=== PATIENT | female | born 1960 | race Caucasian/White ===

== ENCOUNTER → 2019-01-22 | Outpatient (CLI) | payer OTHER ==
[~2019-01-22] MED LIST: ALBU90OI6 INH
[2019-01-23 14:06] LABS: HPV 16 Negative (Negative); HPV 18 Negative (Negative); HPV OTHER HR TYPES Negative (Negative)
== END | disposition home or self-care (01) ==
LOC: LAB 13:23 → LAB SHORT 13:23
PROVIDERS: Internal Medicine
DX: Z12.4 Encounter for screening for malignant neoplasm of cervix (principal)
CPT/HCPCS: 87624; G0145

== ENCOUNTER → 2019-05-28 | Outpatient (CLI) | payer OTHER | END | disposition home or self-care (01) | LOC: LAB 07:22 → LAB SHORT 07:22 | DX: N84.0 Polyp of corpus uteri (principal); N95.0 Postmenopausal bleeding | CPT/HCPCS: 88305 ==

== ENCOUNTER 2020-12-30 08:12 | Day surgery (SDC) | payer OTHER | END 2020-12-30 23:09 | disposition home or self-care (01) | LOC: MOI US 08:12 → MOI MAM 01-09 08:00 | DX: C50.912 Malignant neoplasm of unspecified site of left female breast (principal); Z17.0 Estrogen receptor positive status [ER+] | CPT/HCPCS: 19083; 77065; 88305; 88360; A4648; G0279 ==

== ENCOUNTER 2021-10-17 08:36 | Day surgery (SDC) | payer MEDICARE, OTHER ==
[~2021-10-17] VITALS: Ht 167.6 cm; Wt 91.6 kg
[~2021-10-17 08:36] MED LIST changes: +ANASTROZOLE1 M7 PO; +BUPROPION XL150 M1 PO; +ESCI20 PO; +PREG100 PO
--- NOTE | 2021-10-17 09:30 | NUR ---
History, Chart, Medications and Allergies reviewed before start of procedure. Lungs clear T/O to Auscultation. Patient confirms NPO status and agrees with scheduled surgery. Pre-Op teaching done. Pt verbalizes understanding. Patient reports completing Chlorhexadine shower X2 prior to admission to hospital.
--- NOTE | 2021-10-17 14:16 | NUR ---
PT TO ROOM FROM PACU AT 1400. VSS ON RA, RESTING IN BED. PT HAS NO SENSATION TO LOWER EXTREMITIES AT THIS TIME, UNABLE TO WIGGLE TOES. LUNGS CLEAR. TOLERATING WATER AND JELLO. ORIENTED TO ROOM & CALL LIGHT.
--- NOTE | 2021-10-17 18:44 | NUR ---
NO ACUTE CHANGES SINCE ARRIVAL. PT GAINED SENSATION TO LOWER EXTREMITIES. WORKED W/ PT & DID WELL, 1 P FWW/GB. VOIDED POST OP, TOLERATING PO INTAKE WELL. PAIN MANAGED PER EMAR. WILL REPORT TO ONCOMING RN.
--- NOTE | 2021-10-18 04:08 | NUR ---
SHIFT SUMMARY POD1 L TKA. BENJA WRAP TO KNEE REMAINS CDI WITH POLAR PACK IN PLACE. UP WITH 1 SBA USING GB + WALKER. 2 STONE + TYLENOL + TORADOL FOR PAIN MANAGEMENT. X1 DOSE OF DILAUDID FOR BREAKTHROUGH PAIN. IV SL. ANURADHA PO. USES CALL LIGHT APPROPRIATELY.
[2021-10-18 05:10] LABS: BASOPHILS ABSOLUTE AUTO 0.02 K/mm3 (0.00-0.23); BASOPHILS PERCENT AUTO 0 % (0-2); EOSINOPHILS ABSOLUTE AUTO 0.19 K/mm3 (0.00-0.68); EOSINOPHILS PERCENT AUTO 1 % (0-6); Hematocrit 36.1 % (33.0-51.0); Hemoglobin 11.5 g/dL (11.5-16.0); IMMATURE GRAN ABSOLUTE AUTO 0.11 K/mm3 (0.00-0.10); IMMATURE GRAN PERCENT AUTO 1 % (0-1); LYMPHOCYTES ABSOLUTE AUTO 2.55 K/mm3 (0.84-5.20); LYMPHOCYTES PERCENT AUTO 18 % (21-46); MONOCYTES ABSOLUTE AUTO 1.37 K/mm3 (0.16-1.47); MONOCYTES PERCENT AUTO 10 % (4-13); Mean Corpuscular HGB 28.5 pg (26.0-34.0); Mean Corpuscular HGB Conc 31.9 g/dL (31.5-36.5); Mean Corpuscular Volume 89 fL (80-100); Mean Platelet Volume 9.7 fL (9.1-12.4); NEUTROPHILS ABSOLUTE AUTO 9.98 K/mm3 (1.96-9.15); NEUTROPHILS PERCENT AUTO 70 % (41-73); Platelet Count 245 K/mm3 (150-400); RDW Coefficient Variation 14.8 % (11.7-14.2); RDW Standard Deviation 47.9 fL (35.1-46.3); Red Blood Cell Count 4.04 M/mm3 (3.80-5.20); White Blood Cell Count 14.22 K/mm3 (4.00-11.30)
[2021-10-18 05:45] LABS: Anion Gap 7 mmol/L (6-16); Blood Urea Nitrogen 10 mg/dL (8-24); Bun/Creatinine Ratio 15.1 (12.0-20.0); CO2, Blood 29 mmol/L (21-32); Calcium, Blood 8.4 mg/dL (8.5-10.1); Chloride, Blood 102 mmol/L (98-108); Creatinine, Blood 0.66 mg/dL (0.40-1.00); Glomerular Filtration Rate >60 (60-); Glucose, Blood 171 mg/dL (70-99); Potassium, Blood 3.7 mmol/L (3.5-5.5); Sodium, Blood 138 mmol/L (136-145)
[2021-10-18] MEDS ORDERED: Percocet 5-3251 EACH PO (08:26)
[2021-10-18] MEDS ORDERED: Aspir 8181 MG PO (08:26)
--- NOTE | 2021-10-18 12:53 | NUR ---
DISCHARGE SUMMARY PT A&OX4, VSS/RA, PAIN MANAGED WELL, ANURADHA PO, VOIDING WELL, AMB SBA FWW & GB. 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 DC INS PROVIDED, PT REP UNDERSTANDING THOSE INSTRUCTIONS. IV DC'D.
== END 2021-10-18 11:35 | disposition home or self-care (01) ==
LOC: ORSCMMR 08:36 → ORD 10:15 → SURS 13:50 → ORSCMMR 10-18 11:35
PROVIDERS: Orthopaedic Surgery
PROC: 0SPD04Z Removal of Internal Fixation Device from Left Knee Joint, Open Approach (ICD-10-PCS; principal; 2021-10-17 10:15)
PROC: 8E0Y0CZ Robotic Assisted Procedure of Lower Extremity, Open Approach (ICD-10-PCS; principal; 2021-10-17 10:15)
PROC: 0SRD0JA Replacement of Left Knee Joint with Synthetic Substitute, Uncemented, Open Approach (ICD-10-PCS; principal; 2021-10-17 10:15)
DX: M17.12 Unilateral primary osteoarthritis, left knee (principal); F41.8 Other specified anxiety disorders; M79.7 Fibromyalgia; Z79.899 Other long term (current) drug therapy; E66.9 Obesity, unspecified; Z68.32 Body mass index [BMI] 32.0-32.9, adult
CPT/HCPCS: 27447; 20680; S2900; 36415; 73560-LT; 80048; 85025; 97110; 97116; 97161; 97530; A9270; C1713; C1776; J0171; J0690; J0735; J1170; J1885; J2250; J2405; J2704; J2795; J3010; J7120

== ENCOUNTER 2021-11-28 06:26 | Day surgery (SDC) | payer MEDICARE, OTHER ==
[~2021-11-28] VITALS: Ht 167.6 cm; Wt 89.8 kg
[~2021-11-28 06:26] MED LIST changes: +Aspir 8181 MG PO; +Percocet 5-3251 EACH PO
--- NOTE | 2021-11-28 09:05 | NUR ---
PT OUT TO CAR VIA WHEELCHAIR, ABLE TO DRESS INDEPENDENTLY. D/C INST GIVEN, PT DENIES QUESTIONS. SISTER IS RIDE HOME.
== END 2021-11-28 23:19 | disposition home or self-care (01) ==
LOC: ORSCMMR 06:26 → ORD 07:30 → ORSCMMR 23:19
PROVIDERS: Orthopaedic Surgery
PROC: 0SNDXZZ Release Left Knee Joint, External Approach (ICD-10-PCS; principal; 2021-11-28 07:30)
DX: Z96.652 Presence of left artificial knee joint (principal); M24.662 Ankylosis, left knee; M79.7 Fibromyalgia; E66.9 Obesity, unspecified; Z68.32 Body mass index [BMI] 32.0-32.9, adult; Z79.899 Other long term (current) drug therapy
CPT/HCPCS: 73560-LT; A9270; J0690; J1100; J1885; J2405; J2704; J3010; J7120

== ENCOUNTER → 2022-11-27 | Outpatient (CLI) | payer MEDICARE, OTHER ==
[2022-11-30 16:11] LABS: HPV 16 Negative (Negative); HPV 18 Negative (Negative); HPV OTHER HR TYPES Negative (Negative)
== END | disposition home or self-care (01) ==
LOC: LAB SHORT 08:40 → LAB 08:40
PROVIDERS: Internal Medicine
DX: Z12.4 Encounter for screening for malignant neoplasm of cervix (principal)
CPT/HCPCS: 87624; G0145

== ENCOUNTER 2024-08-11 09:41 | Day surgery (SDC) | payer OTHER ==
[~2024-08-11] VITALS: Ht 167.6 cm; Wt 82.2 kg
[2024-08-11] VITALS (14 sets, daily range): BP systolic 128–163; BP diastolic 64–81
[2024-08-11] MEDS ORDERED: OxyCODONE HCL 10 MG TABCR PO SCH (10:15)
[2024-08-11] MEDS ORDERED: Lactated Ringer's 1,000 ML IV SCH ×2 (10:15→10:55)
[2024-08-11] MEDS ORDERED: Tranexamic Acid 1,000 MG in NS 100 ML IV SCH (10:15)
[2024-08-11] MEDS ORDERED: Ropivacaine 0.5% HCl/Pf 123.125 MG,EPINEPHrine HCL 0.25 MG,Ketorolac Tromethamine 15 MG... INFIL SCH (10:15)
[2024-08-11] MEDS ORDERED: Acetaminophen 500 MG Tab PO SCH ×2 (10:15→16:00)
[2024-08-11] MEDS ORDERED: Chlorhexidine Mouth Care 15 ML UDC MT SCH (10:15)
[2024-08-11] MEDS ORDERED: CeFAZolin Sodium 2,000 MG in NS 100 ML IV SCH ×2 (10:15→21:00)
[2024-08-11] MEDS ORDERED: CeFAZolin Sodium 2,000 MG VIAL ONE (10:42)
[2024-08-11] MEDS ORDERED: Ondansetron HCl 2 MG / ML 2ML Vial IV PRN (10:55)
[2024-08-11] MEDS ORDERED: Metoclopramide HCl 5MG / ML 2ML Vial IV PRN (10:55)
[2024-08-11] MEDS ORDERED: Magnesium Hydroxide Conc 10 ML UDC PO PRN (10:55)
--- NOTE | 2024-08-11 10:58 | NUR ---
History, Chart, Medications and Allergies reviewed before start of procedure. Pre-Op teaching done. Pt verbalizes understanding. Patient confirms NPO status and agrees with scheduled surgery. PT BELONGINGS BAG PLACED UNDER GURNEY.
[2024-08-11] MEDS ORDERED: Midazolam HCl 1MG / ML 2ML Vial ONE (10:59)
[2024-08-11] MEDS ORDERED: propofoL 60 ML IV ONE (10:59)
[2024-08-11] MEDS ORDERED: FentaNYL Citrate 50 MCG/ML 2 ML Injection ONE ×2 (10:59→14:31)
[2024-08-11] MEDS ORDERED: Promethazine HCl 25 MG Tab PO PRN (11:00)
[2024-08-11] MEDS ORDERED: DiphenhydrAMINE HCL 25 MG Cap PO PRN (11:00)
[2024-08-11] MEDS ORDERED: HYDROmorphone HCl/Pf 1MG SYR IV PRN (11:00)
[2024-08-11] MEDS ORDERED: FLU VACC TS2024-25(6MOS UP)/PF 45 MCG/0.5 ML SYRINGE IM SCH (11:00)
[2024-08-11] MEDS ORDERED: Bisacodyl 10 MG Supp PR PRN (11:05)
[2024-08-11] MEDS ORDERED: OxyCODONE HCL 5 MG TAB PO PRN ×2 (11:05)
[2024-08-11] MEDS ORDERED: Metoclopramide HCl 5MG / ML 2ML Vial ONE (11:18)
[2024-08-11] MEDS ORDERED: Dexamethasone Sod Phos 10 MG/ML 1ML VIAL ONE (11:18)
[2024-08-11] MEDS ORDERED: Ondansetron HCl 2 MG / ML 2ML Vial ONE (11:18)
[2024-08-11] MEDS ORDERED: Ketorolac Tromethamine 15mg Vial IV SCH (12:00)
--- NOTE | 2024-08-11 13:25 | NUR ---
08/11/24 1325 Leah Mancini SPINAL BLOCK COMPLETED BY UPON ENTRY TO OR.
[2024-08-11] MEDS ORDERED: HYDROmorphone HCl/Pf 1MG SYR ONE (14:42)
--- NOTE | 2024-08-11 18:26 | NUR ---
SHIFT SUMMARY PT ARRIVED TO SURGGICAL UNIT AROUND 1500 w/ HOPES OF GOING HOME TODAY. UNFORTUNATLY, AT THIS TIME SHE IS STILL NUMB & CANNOT LIFT HER LEGS. SHE CAN WIGGLE HER TOES NOW. C/O NAUSEA & 1 EPISODE OF EMESIS. HAS VOIDED BUT NOT OOB.
[2024-08-11] MEDS ORDERED: Docusate Sodium 100 MG Cap PO SCH (21:00)
[2024-08-11] MEDS ORDERED: Anastrozole 1 MG TAB PO SCH (21:00)
[2024-08-12 01:10] VITALS: BP 142/75
--- NOTE | 2024-08-12 04:56 | NUR ---
SHIFT SUMMARY POD 1 S/P RIGHT TKA. IS A/OX4. VSS. DRESSING CDI. PAIN MANAGED WITH [employer], REPOSITIONING AND PER EMAR. AMBULATING WITH FWW, GB, AND SBA. IS VOIDING. ANURADHA PO INTAKE, MEDICATED X 1 ZOFRAN. ABX INFUSED PER ORDERS. PLAN TO WORK WITH THERAPY AND DC HOME TODAY.
[2024-08-12 05:36] LABS: BASOPHILS ABSOLUTE AUTO 0.02 K/mm3 (0.00-0.23); BASOPHILS PERCENT AUTO 0 % (0-2); EOSINOPHILS ABSOLUTE AUTO 0.01 K/mm3 (0.00-0.68); EOSINOPHILS PERCENT AUTO 0 % (0-6); Hematocrit 37.9 % (33.0-51.0); Hemoglobin 12.4 g/dL (11.5-16.0); IMMATURE GRAN ABSOLUTE AUTO 0.11 K/mm3 (0.00-0.10); IMMATURE GRAN PERCENT AUTO 1 % (0-1); LYMPHOCYTES ABSOLUTE AUTO 1.66 K/mm3 (0.84-5.20); LYMPHOCYTES PERCENT AUTO 9 % (21-46); MONOCYTES ABSOLUTE AUTO 1.33 K/mm3 (0.16-1.47); MONOCYTES PERCENT AUTO 8 % (4-13); Mean Corpuscular HGB 28.6 pg (26.0-34.0); Mean Corpuscular HGB Conc 32.7 g/dL (31.5-36.5); Mean Corpuscular Volume 87 fL (80-100); Mean Platelet Volume 9.7 fL (9.1-12.4); NEUTROPHILS ABSOLUTE AUTO 14.55 K/mm3 (1.96-9.15); NEUTROPHILS PERCENT AUTO 82 % (41-73); Platelet Count 291 K/mm3 (150-400); RDW Coefficient Variation 13.7 % (11.7-14.2); Red Blood Cell Count 4.34 M/mm3 (3.80-5.20); White Blood Cell Count 17.68 K/mm3 (4.00-11.30)
[2024-08-12 05:49] VITALS: BP 135/74
[2024-08-12 06:00] LABS: Bun/Creatinine Ratio 16.9 (12.0-20.0); Creatinine, Blood 0.65 mg/dL (0.40-1.00); Potassium, Blood 4.3 mmol/L (3.5-5.5)
[2024-08-12] MEDS ORDERED: ASPI81CH PO (07:33)
[2024-08-12 08:28] VITALS: BP 136/65
[2024-08-12] MEDS ORDERED: Aspirin 81 MG Chew PO SCH (09:00)
[2024-08-12] MEDS ORDERED: Citalopram Hydrobromide 20 MG Tab PO SCH (09:00)
--- NOTE | 2024-08-12 10:53 | NUR ---
DISCHARGE POD 1 RTKA PT CLEARED THERAPY. VOIDING, TOLERATING DIET. PAIN WELL CONTROLLED PER EMAR. DISCHARGE INSTRUCTIONS GONE OVER WITH PATIENT. EXTRA DRESSINGS SENT.ESCORTED OUT VIA WHEELCHAIR.
== END 2024-08-12 09:17 | disposition home or self-care (01) ==
LOC: ORSCMMR 09:41 → ORD 11:00 → ORSCMMR 11:00 → SURS 15:01 → ORSCMMR 08-12 09:17
PROVIDERS: Orthopaedic Surgery
PROC: 0SRC0JA Replacement of Right Knee Joint with Synthetic Substitute, Uncemented, Open Approach (ICD-10-PCS; principal; 2024-08-11 11:00)
DX: M17.11 Unilateral primary osteoarthritis, right knee (principal); K21.9 Gastro-esophageal reflux disease without esophagitis; F32.A Depression, unspecified; Z79.899 Other long term (current) drug therapy; E66.9 Obesity, unspecified; Z68.29 Body mass index [BMI] 29.0-29.9, adult
CPT/HCPCS: 36415; 73560-RT; 80048; 85025; 97110; 97116; 97162; A9270; C1713; C1776; J0171; J0690; J0735; J1100; J1171; J1885; J2250; J2405; J2704; J2765; J2795; J3010; J7120

== ENCOUNTER 2024-10-06 07:09 | Day surgery (SDC) | payer OTHER ==
[2024-10-06] VITALS (10 sets, daily range): BP systolic 140–170; BP diastolic 70–91
[~2024-10-06] VITALS: Ht 167.6 cm; Wt 82.6 kg
[~2024-10-06 07:09] MED LIST changes: +ASPI81CH PO; +CELE200 PO; +Cyclobenzaprine5 MG PO; +Ketorolac Tromethamine 30mg Vial ONE; +Lactated Ringer's 1,000 ML IV SCH; +Lidocaine HCl 2% 20 ML MDV ONE; +MUPIROCIN111; +Ondansetron HCl 2 MG / ML 2ML Vial ONE; +Percocet 5-3251 EACH; +propofoL 20 ML IV ONE
[2024-10-06] MEDS ORDERED: propofoL 20 ML IV ONE (07:52)
[2024-10-06] MEDS ORDERED: Labetalol HCL 5 MG/ML 4ML Injection (Single Dose) ONE (07:55)
[2024-10-06] MEDS ORDERED: FentaNYL Citrate 50 MCG/ML 2 ML Injection IV ONE (08:15)
[2024-10-06] MEDS ORDERED: OxyCODONE 5 mg/Acetamin 325 mg TABLET PO PRN (08:30)
--- NOTE | 2024-10-06 08:50 | NUR ---
PT NOTED TO HAVE PETECHIAE TO RIGHT HAND/WRIST AREA, SAME SIDE BP CUFF IS ON. ANESTHESIA TO BEDSIDE. NEW ORDER FOR BP MED IF NEEDED.
[2024-10-06] MEDS ORDERED: HydrALAZINE HCl 20 MG / ML 1ML Vial IV ONE (09:10)
--- NOTE | 2024-10-06 10:28 | NUR ---
Patient up to WC independently. PT REPORTS READY TO GO HOME. PT REPORTS HAVING EQUIP AT HOME ALREADY, WELL PAIN MEDICATIONS. Discharge instructions reviewed with patient. Patient verbalizes understanding. Copy given to patient to take home. Patient States Post-Procedure ride home has been arranged. Discharged via wheelchair to private car for ride home. PT SENT WITH [employer] PACK. XRAY COMPLETED PRIOR TO DISCHAGE. PETECHIAE TO RIGHT HAND/WRIST AREA APPEARS THE SAME. PT REPORTS PAIN TOLERABLE. TOLERATING PO. BP BETTER AFTER MEDICATIONS. ANESTHESIA REPORTS PT MAY DISCHARGE.
== END 2024-10-06 10:28 | disposition home or self-care (01) ==
LOC: ORSCMMR 07:09 → ORD 08:00 → ORSCMMR 08:00
PROVIDERS: Orthopaedic Surgery
PROC: 0SSCXZZ Reposition Right Knee Joint, External Approach (ICD-10-PCS; principal; 2024-10-06 08:00)
DX: M24.661 Ankylosis, right knee (principal); Z96.651 Presence of right artificial knee joint; F32.A Depression, unspecified; Z79.899 Other long term (current) drug therapy
CPT/HCPCS: 73560-RT; A9270; J0360; J1885; J2405; J2704; J3010; J7120